=== PATIENT | male | born 1950 | race Caucasian/White ===

== ENCOUNTER 2017-03-31 07:46 | Day surgery (SDC) | payer MEDICARE ==
[2017-03-14 10:15] VITALS: BMI 35.2
[2017-03-31] MEDS ORDERED: Lactated Ringer's 1,000 ML IV ONE (09:00)
[2017-03-31] MEDS ORDERED: Midazolam 2 MG/2 ML VIAL ONE (10:11)
[2017-03-31] MEDS ORDERED: Etomidate 20 mg/10ml Inj IV ONE (10:11)
[2017-03-31] MEDS ORDERED: Lidocaine 4% (Laryng-O-Jet) Kit MM ONE (10:17)
[2017-03-31] MEDS ORDERED: cefTRIAXone (Rocephin) 1 gm Inj ONE (10:18)
[2017-03-31] MEDS ORDERED: cefTRIAXone (Rocephin) 1 gm Inj IVPB ONE (10:35)
[2017-03-31] MEDS ORDERED: ePHEDrine 50 mg/ml Inj ONE (10:56)
[2017-03-31] MEDS ORDERED: HYDROmorphone 0.5 mg/0.5 ml ISec IVP PRN (11:07)
[2017-03-31 12:59] VITALS: RESP 18
[2017-03-31 13:50] VITALS: BP 116/55; PULSE 51; TEMP 97.3; O2SAT 97
--- NOTE | 2017-06-10 08:45 | OP ---
PROCEDURE DATE: 03/31/2017 PREOPERATIVE DIAGNOSIS: Bladder tumor. POSTOPERATIVE DIAGNOSIS: Bladder tumor. PROCEDURE PERFORMED: Cystoscopy with transurethral resection of bladder tumor. DESCRIPTION OF PROCEDURE: The patient was placed on the operating room table in the dorsal lithotomy position. The area of the groin was draped and prepped in a sterile manner giving general anesthesia. A #24 continuous flow resectoscope was inserted into the bladder. Immediately noted at the left lateral wall of the bladder, a very large bladder tumor. It was resected completely. During the resection, I had several times cauterized some significant active bleeders. Once this was done, the rest of the bladder was evaluated. There was no other residual tumor noted. The tumor specimen was aspirated and then sent for specimen analysis. The patient had a #22 three-way Greenberg catheter inserted. He was taken from the operating room in good condition. Jeimy Molina MD
== END 2017-03-31 14:28 | disposition home or self-care (01) ==
LOC: H.OPSURG 07:46
PROVIDERS: ATTEND Urology
DX: C67.9 Malignant neoplasm of bladder, unspecified (principal)
CPT/HCPCS: 52240; 82948; 88305; 88307; J0696; J1170; J2001; J2250; J2765; J3010; J7120